=== PATIENT | female | born 1990 | race African-American/Black ===

== ENCOUNTER 2018-02-12 03:11 | Emergency (ER) | payer MEDICAID | END 2018-02-12 07:29 | disposition left against medical advice (07) | LOC: ER 03:11 | DX: Z53.21 Procedure and treatment not carried out due to patient leaving prior to being seen by health care provider (principal) ==

== ENCOUNTER 2018-07-10 13:01 | Emergency (ER) | payer MEDICAID ==
[~2018-07-10] VITALS: Ht 180.3 cm; Wt 127.0 kg
[2018-07-10] MEDS ORDERED: IBUPROFEN 600MG TABLET PO ONE (17:30)
[2018-07-10 19:36] VITALS: BP 121/72
== END 2018-07-10 19:37 | disposition home or self-care (01) ==
LOC: ER 15:34
DX: M79.674 Pain in right toe(s) (principal); M79.645 Pain in left finger(s); F17.200 Nicotine dependence, unspecified, uncomplicated; Z98.890 Other specified postprocedural states
CPT/HCPCS: 73130; 73660; 81025; 99283